=== PATIENT | male | born 1950 | race Caucasian/White ===

== ENCOUNTER 2020-03-24 12:15 | Emergency (ER) | payer MEDICARE, OTHER ==
[~2020-03-24 12:15] MED LIST: ASCORBIC ACID500 MG PO; ASPIRIN EC81 MG PO; CENTRUM SILVER1 EAC5 PO; CYMBALTA20 MG PO; DOC-Q-LACE100 MG PO; FLOMAX0.4 MG PO; FLONASE ALLER15.8 ML; ONDANSETRON ODT4 MG SL; OXYCODONE HCL10 MG PO; PERCOCET 10-321 EACH PO; PROBIOTIC1 EAC1 PO; PROTONIX 40MG T40 MG PO; SINGULAIR10 MG PO; SYNTHROID125 MCG PO; VALTREX500 MG PO; VOLTAREN **OUT50 MG PO; ZYRTEC10 M3 PO
[2020-03-24 13:31] LABS: BASOPHIL 0.2 % (0-2); EOSINOPHIL 0 % (0-7); HCT 41.6 % (42.0-52.0); HGB 13.6 g/dl (13.2-18.0); LYMPHOCYTE 24.4 % (15-48); MCH 31.9 pg (25.0-31.0); MCHC 32.7 g/dL (32.0-36.0); MCV 97.4 fL (78.0-100.0); MONOCYTE 4.7 % (0-12); MPV 10.4 fL (6.0-9.5); NEUTROPHIL 70.1 % (41-80); NRBC 0; PLT 165 K/uL (150-400); RBC 4.27 M/uL (4.70-6.00); WBC 4.9 K/uL (4.0-10.5)
[2020-03-24 14:10] LABS: BUN/CREAT RATIO (CALC) 20.8 RATIO; CREATININE 1.25 mg/dL (0.67-1.17); POTASSIUM 4.2 mmol/L (3.5-5.1)
[2020-03-24] MEDS ORDERED: MEDROL 4MG DOSEP4 MG PO (15:51)
[2020-03-24] MEDS ORDERED: ZPAK PO (15:51)
== END 2020-03-24 16:30 | disposition home or self-care (01) ==
LOC: FER 12:15
PROVIDERS: Emergency Medicine
DX: U07.1 COVID-19 (principal); J12.82 Pneumonia due to coronavirus disease 2019; Z87.19 Personal history of other diseases of the digestive system
CPT/HCPCS: 36415; 36600; 71045; 71275; 80048; 82803; 85025; J2930; J7030; Q9967